=== PATIENT | male | born 1945 | race Caucasian/White ===

== ENCOUNTER 2018-08-12 23:02 | Emergency (ER) | payer MEDICARE, BC ==
[~2018-08-12] VITALS: Ht 165.1 cm; Wt 66.2 kg
[2018-08-12 23:18] VITALS: BP 134/73
[2018-08-13] MEDS ORDERED: TDAP [DIPH/PERTUSSIS/TET] 0.5 ML VIAL IM ONE ×2 (00:02)
== END 2018-08-13 01:00 | disposition home or self-care (01) ==
LOC: ER 23:15
DX: S61.211A Laceration without foreign body of left index finger without damage to nail, initial encounter (principal); E03.9 Hypothyroidism, unspecified; W26.8XXA Contact with other sharp object(s), not elsewhere classified, initial encounter; Y93.89 Activity, other specified; Y92.098 Other place in other non-institutional residence as the place of occurrence of the external cause; Y99.8 Other external cause status
CPT/HCPCS: 12001; 73140; 90471; 90715; 99283; A6403

== ENCOUNTER 2024-08-19 18:52 | Emergency (ER) | payer MEDICARE, BC ==
[~2024-08-19] VITALS: Ht 154.9 cm; Wt 68.9 kg
[2024-08-19] MEDS ORDERED: LIDOCAINE 1%-EPI 1:100,000 20 ML VIAL ONE (19:25)
[2024-08-19] MEDS ORDERED: TDAP [DIPH/PERTUSSIS/TET] 0.5 ML VIAL IM ONE (19:25)
[2024-08-19] MEDS: TDAP [DIPH/PERTUSSIS/TET] 0.5 ML VIAL IM ONE (19:32)
[2024-08-19] MEDS: LIDOCAINE 1%-EPI 1:100,000 20 ML VIAL TP ONE (20:10)
[2024-08-19] MEDS ORDERED: HYDR-3972 PO (20:43)
[2024-08-19] MEDS ORDERED: IBUP-1490 PO (20:43)
[2024-08-19 20:59] VITALS: BP 135/80; TEMP 98; O2SAT 99
== END 2024-08-19 21:00 | disposition home or self-care (01) ==
LOC: ER 19:17
DX: S51.811A Laceration without foreign body of right forearm, initial encounter (principal); E03.9 Hypothyroidism, unspecified; W26.8XXA Contact with other sharp object(s), not elsewhere classified, initial encounter; Y93.89 Activity, other specified; Y92.89 Other specified places as the place of occurrence of the external cause; Y99.8 Other external cause status
CPT/HCPCS: 12005; 90471; 90715; 99283; J3490

== ENCOUNTER 2024-08-20 08:23 | Emergency (ER) | payer MEDICARE, BC ==
[~2024-08-20] VITALS: Ht 160 cm; Wt 66.2 kg
[~2024-08-20 08:23] MED LIST: HYDR-3972 PO; IBUP-1490 PO
[2024-08-20] MEDS ORDERED: LIDOCAINE 1%-EPI 1:100,000 20 ML VIAL ONE (08:55)
[2024-08-20] MEDS: LIDOCAINE 1%-EPI 1:100,000 20 ML VIAL TP ONE (09:02)
[2024-08-20] MEDS: BACITRACIN ZINC OINT PACKET 1 EA PACKET TP ONE (10:03)
[2024-08-20] MEDS ORDERED: ACETAMINOPHEN ES 500 MG TABLET ONE (10:08)
[2024-08-20] MEDS: ACETAMINOPHEN ES 500 MG TABLET PO ONE (10:12)
[2024-08-20 10:13] VITALS: BP 110/68; TEMP 98.3; O2SAT 99
== END 2024-08-20 10:14 | disposition home or self-care (01) ==
LOC: ER 08:27
DX: S51.811D Laceration without foreign body of right forearm, subsequent encounter (principal); E03.9 Hypothyroidism, unspecified; W23.0XXD Caught, crushed, jammed, or pinched between moving objects, subsequent encounter
CPT/HCPCS: 99283; A6403; J3490